=== PATIENT | female | born 1930 | race Caucasian/White ===

== ENCOUNTER 2018-06-13 23:42 | Observation (INO) | payer OTHER ==
--- NOTE | 2018-06-14 00:28 | PDOC ---
Attending Attestation - [facility] HPI: 06/14/18 00:30 The patient is a year old female, with a significant past medical history of, who presents to the emergency department with palpitations, SOB, left hand and right face numbness at 11am on 06/13 while in [place] with a family member. The family states the patient went to an urgent care who gave her metoprolol and aspirin and advised the patient to go to the ED. The family reportedly droved from [place] before going to the ED and presents now. The patient states her symptoms have now resolved and family is unsure how long the symptoms lasted. The patient denies chest pain, shortness of breath, headache and dizziness. The patient denies fever, chills, nausea, vomit, diarrhea and constipation. The patient denies dysuria, frequency, urgency and hematuria. Allergies: NKDA PCP - Dr. Meek - Physicial Exam PE: 06/14/18 00:30 Constitutional: Awake, alert, oriented. No acute distress. Head: Normocephalic. Atraumatic Eyes: PERRL. EOMI. Conjunctivae are not pale. ENT: Mucous membranes are moist and intact. Posterior pharynx without exudates or erythema. Uvula midline. Neck: Supple. Full ROM. No lymphadenopathy. Cardiovascular: Regular rate. Regular rhythm. S1, S2 regular. Distal pulses are 2+ and symmetric. Pulmonary/Chest: No evidence of respiratory distress. Clear to auscultation bilaterally No wheezing, rales or rhonchi. Abdominal: Soft and non-distended. There is no tenderness. No rebound, guarding or rigidity. No organomegaly. No palpable masses. Good bowel sounds. Back: No CVA tenderness. Musculoskeletal: No edema. No cyanosis. No clubbing. Full range of motion in all extremities. Nocalf tenderness. Radial/pedal pulses are intact and 2+ bilaterally Skin: Skin is warm and dry. No petechiae. No purpura. Neurological: Alert and oriented to person, place, and time. Cranial nerves II -XII are grossly intact. Normal speech. Strength is grossly symmetric. No sensory deficits. Psychiatric: Good eye contact. Normal interaction, affect and behavior. - Medical Decision Making 06/14/18 00:31 Documentation prepared by Stephanie Washburn, acting as medical records coder for Umu Silverman DO, <Stephanie Washburn - Last Filed: 06/14/18 00:39> - Resident Resident Name: Matilda Robles - ED Attending Attestation I have performed the following: I have examined & evaluated the patient, The case was reviewed & discussed with the resident, I agree w/resident's findings & plan, Exceptions are as noted - Medical Decision Making 06/14/18 00:26 I, Dr. Umu Silverman DO, attest that this document has been prepared under my direction and personally reviewed by me in its entirety. I further attest, that it accurately reflects all work, treatment, procedures and medical decision -making performed by me. 06/14/18 00:43 a/p: 88yo female with an episode of difficulty speaking, R facial droop, L hand numbness at 11am yesterday morning -seen at an urgent care, given asa/metoprolol -told to go to the ED for stroke eval - pt drove back from [place] for ed eval -all symptoms resolved -currently denies all compliants -earlier during stroke like symptoms/tia she had palpitations/sob -will send labs, ekg, cxr, head ct, coags -will place on tele monitoring given earlier palpitations and cva symptoms -outside the window for tpa and resolution of symptoms -will place in obs for tia eval 06/14/18 01:[address] negative 06/14/18 01:43 pt will need obs <Umu Silverman - Last Filed: 06/14/18 01:43> Heart Score/ECG Review - ECG Intrepretation Comment:: 06/14/18 01:43 sinus at 70, nl axis, nl interval, lvh, t wave inversions v3-6, abnl ekg <Umu Silverman - Last Filed: 06/14/18 01:43> tPA Exclusion checklist 3-4.5h - Time Elapsed Date last known well: 06/13/18 Time last known well: 11:00 Elaspsed time: Day(s) and 14 Hour(s) and 43 Minutes - Thrombolytic Therapy Candidate Is patient eligible for thrombolytic therapy: No - Ineligibility reason(s) Reasons No tPA given: Outside of window - delayed arrival (symptoms started 13 hours prior to arrival) <Umu Silverman - Last Filed: 06/14/18 01:43>
--- NOTE | 2018-06-14 00:38 | PDOC ---
History of Present Illness - General Chief Complaint: CVA/TIA Stated Complaint: WEAKNESS Time Seen by Provider: 06/14/18 00:12 - History of Present Illness Initial Comments: 06/14/18 00:35 88 year old woman with pmhx of HTN, HLD, DM who presents after an episode of headache, R tongue deviation and heaviness and L hand numbness at 1100 on while visiting her sister in [place]. The patient's family noted that the pt's bp was elevated to 164 and glucose 200. She was seen at an urgent care and given ASA and metoprolol. The patient is not sure how long the symptoms lasted but believes it to be approx 10-15min. The patient has complained of some shortness of breath and cough for the past couple of days but denies chest pain, abdominal pain, N/V/D/C, and fever. Has no other complaints at bedside. NIHSS: 0 PMHX: as in HPI PSHX: Meds: Allergies: Tob: Etoh: Rec drugs: PCP: [facility] Past History - Past Medical History Allergies/Adverse Reactions: Allergies Allergy/AdvReac Type Severity Reaction Status Date / Time No Known Allergies Allergy Verified 06/13/18 23:54 Home Medications: Ambulatory Orders Acetaminophen [Tylenol 8 Hour] 650 mg PO DAILY 06/14/18 Aspirin 81 mg PO DAILY 06/14/18 Cetirizine HCl [Zyrtec -] 10 mg PO DAILY 06/14/18 Metoprolol Succinate [Toprol Xl] 50 mg PO DAILY 06/14/18 Pioglitazone HCl [Actos] 30 mg PO DAILY 06/14/18 Ezetimibe [Zetia -] 10 mg PO DAILY 30 Days #30 tablet 06/15/18 Glipizide [Glipizide ER] 20 mg PO DAILY 30 Days #60 tab.er.[email or web address] 06/15/18 Metformin HCl [Glucophage] 1,000 mg PO BID 30 Days #60 tablet 06/15/18 Nifedipine ER [Procardia XL -] 30 mg PO DAILY 30 Days #30 tab.er.24 06/15/18 COPD: No Diabetes: Yes HTN: Yes Hypercholesterolemia: Yes - Suicide/Smoking/Psychosocial Hx Smoking History: Never smoked *Physical Exam - Vital Signs Last Vital Signs Temp Pulse Resp BP Pulse Ox 98.3 F 72 18 165/82 98 06/13/18 23:49 06/13/18 23:49 06/13/18 23:49 06/13/18 23:49 06/13/18 23:49 ED Treatment Course - LABORATORY CBC & Chemistry Diagram: 06/15/18 06:15 06/15/18 06:15 - RADIOLOGY Radiology Studies Ordered: Category Date Time Status HEAD CT WITHOUT CONTRAST [CT] Stat CT Scan 06/14/18 00:25 Ordered CXRPORT [CHEST X-RAY PORTABLE*] [RAD] Stat Radiology 06/14/18 00:27 Ordered Medical Decision Making - Medical Decision Making 06/14/18 00:43 88 year old woman with pmhx of HTN, HLD, DM who presents after a 10-15min episode of headache, R tongue deviation and heaviness and L hand numbness at 1100 on 06/13/18 while visiting her sister in [place]. The patient's family noted that the pt's bp was elevated to 164 and glucose 200. She was seen at an urgent care and given ASA and metoprolol. DDX: W/U: - TX: - Scores: NIHSS:0 ED Course: Patient assessed. SBP 207 06/14/18 02:53 Pt reassessed. stable. sleeping in bed 06/14/18 03:[address] Burkett 06/19/18 11:31 *DC/Admit/Observation/Transfer Diagnosis at time of Disposition: CVA (cerebral vascular accident) - Discharge Dispostion Disposition: HOME Condition at time of disposition: Stable Decision to Admit order: Yes - Prescriptions - Referrals - Patient Instructions - Post Discharge Activity
[2018-06-14 01:27] LABS: BASO % 0.6 % (0-2.0); EOS % 2.1 % (0-4.5); HEMATOCRIT 41.5 % (32.4-45.2); HEMOGLOBIN 14.2 GM/dL (10.7-15.3); LYMPH % 24.5 % (8-40); MCH 32.4 pg (25.7-33.7); MCHC 34.3 g/dl (32.0-36.0); MEAN CELL VOLUME 94.4 fl (80-96); MEAN PLT VOLUME 9.7 fl (7.5-11.1); MONO % 6.7 % (3.8-10.2); NEUT % 66.1 % (42.8-82.8); PLATELET COUNT 187 K/MM3 (134-434); RBC 4.39 M/mm3 (3.60-5.2); RDW 13.6 % (11.6-15.6)
[2018-06-14 02:25] LABS: INR 1.07 (0.83-1.09); PROTHROMBIN TIME (PATIENT) 12.1 SEC (9.7-13.0)
[2018-06-14 02:28] LABS: ACTIVATED PTT 24.9 SECONDS (25.2-36.5)
[2018-06-14 02:35] LABS: ALBUMIN 3.4 g/dl (3.4-5.0); ANION GAP 8 MMOL/L (8-16); BILIRUBIN,TOTAL 0.2 mg/dL (0.2-1.0); BLOOD UREA NITROGEN 12 mg/dL (7-18); CHLORIDE 102 mmol/L (98-107); CO2 29 mmol/L (21-32); CREATININE 1.1 mg/dL (0.55-1.02); GLUCOSE,RANDOM 286 mg/dL (74-106); SGPT/ALT 62 U/L (12-78); SODIUM 139 mmol/L (136-145); TOT PROT 7.6 g/dl (6.4-8.2)
[2018-06-14 02:36] LABS: ALK PHOS 133 U/L (45-117)
[2018-06-14 02:40] LABS: POTASSIUM 4.2 mmol/L (3.5-5.1); SGOT/AST 50 U/L (15-37)
--- NOTE | 2018-06-14 03:23 | PN ---
Teaching Attending Note Name of Resident: Doc Vna ATTENDING PHYSICIAN STATEMENT I saw and evaluated the patient. I reviewed the resident's note and discussed the case with the resident. I agree with the resident's findings and plan as documented. SUBJECTIVE: Patient is an 88 year old woman with PMH of HTN, HLD, NIDDM who presents after an episode of headache, R tongue deviation and heaviness as well as left hand numbness at 1100 on 06/13/18 while visiting her sister in [place]. The patient's family noted that her BP was elevated to 164 systolic and glucose was 200. She was seen at an urgent care and given ASA and metoprolol. The patient is not sure how long the symptoms lasted but believes it to be approx 10-15min. The patient has complained of some shortness of breath and cough for the past couple of days but denies chest pain, abdominal pain, fever or chills. She is now symptom free. OBJECTIVE: Alert Vital Signs Period Temp Pulse Resp BP Sys/Perez Pulse Ox Last 24 Hr 98.3 F 72 18 165/82 98 HEENT: No Jaundice, no facial asymmetry, eye redness or discharge, PERRLA, EOMI. Normocephalic, atraumatic. External ears are normal and hearing is grossly intact. No nasal discharge. Neck: Supple, nontender. No palpable adenopathy or thyromegaly. No JVD Chest: Good effort. Clear to auscultation and percussion. Heart: Regular. No S3, rub or murmur Abdomen: Not distended, soft, nontender and no HSM. No rebound or guarding. Normoactive bowel sounds. Ext: Peripheral pulses intact. No leg edema. Skin: Warm and dry. No petechiae, rash or ecchymosis. Neuro: Alert. Oriented x3. CN 2-12 grossly intact. Sensation grossly intact in all four extremities and DTR are symmetric. Home Medications Medication Instructions Recorded Atorvastatin Ca [Lipitor] 40 mg PO DAILY 06/14/18 Cetirizine HCl [Zyrtec -] 10 mg PO DAILY 06/14/18 Glipizide [Glipizide ER] 10 mg PO DAILY 06/14/18 Metoprolol Succinate [Toprol Xl] 50 mg PO DAILY 06/14/18 Pioglitazone HCl [Actos] 30 mg PO DAILY 06/14/18 Abnormal Lab Results 06/14/18 06/14/18 06/14/18 01:12 02:00 02:00 WBC 12.0 H PTT (Actin FS) 24.9 L Creatinine 1.1 H Random Glucose 286 H AST 50 H Alkaline Phosphatase 133 H ASSESSMENT AND PLAN: 1. TIA - Symptoms have since resolved. Head CT scan is negative and no arrhythmia on EKG -has t wave inversion in V3 to V6. Will repeat EKG and monitor her on telemetry, get ECHO, carotid doppler, fasting lipid profile, Mg, phosphate and brain MRI. Increase lipitor to 80 mg qd and give ASA. 2. DM - For now, we will hold the home diabetes drugs and implement sliding scale insulin regimen. Provide comprehensive diabetes care with patient teaching and counseling about the importance of euglycemia, eye care and foot care. 3. DVT prophylaxis - Lovenox 40 mg SQ q 24 hours. 4. Advance directives - Full code
--- NOTE | 2018-06-14 04:59 | HP ---
CHIEF COMPLAINT: Headache, tongue weakness, L hand numbness Resolved PCP: HISTORY OF PRESENT ILLNESS: 88 yo female with PMH HTN, DM, HLD, presented to the ED with complaint of an episode of Headache, Right sided tongue and lip weakness, and Left hand numbness. She says the episode occured around 11 am yesterday while she was away in [place]. The episode lasted somewhere between 5-10 minutes. She went to urgent care who gave her aspirin and a beta noel and recommended she go to the ED. She came back to [place] and is now brought to the ED by a different daughter who was not present for the episode. At this time the pt is asymptomatic with only a complaint of a mild noproductive cough which she has had for a few days. At this time pt denies fevers, chills, weakness, numbness, blurry vision, chest pain, SOB, n/v/d. ER course was notable for: (1) Head CT negative for acute bleed (2) CXR with possible mild patchy congestion on RML (3) Recent Travel: To [place] PAST MEDICAL HISTORY: HTN DM HLD PAST SURGICAL HISTORY: denies Social History: Smoking: denies Alcohol: denies Drugs: denies Family History: Allergies No Known Allergies Allergy (Verified 06/13/18 23:54) HOME MEDICATIONS: Home Medications Medication Instructions Recorded Atorvastatin Ca [Lipitor] 40 mg PO DAILY 06/14/18 Cetirizine HCl [Zyrtec -] 10 mg PO DAILY 06/14/18 Glipizide [Glipizide ER] 10 mg PO DAILY 06/14/18 Metoprolol Succinate [Toprol Xl] 50 mg PO DAILY 06/14/18 Pioglitazone HCl [Actos] 30 mg PO DAILY 06/14/18 REVIEW OF SYSTEMS CONSTITUTIONAL: Absent: fever, chills, diaphoresis, generalized weakness, malaise, loss of appetite, weight change HEENT: Absent: rhinorrhea, nasal congestion, throat pain, throat swelling, difficulty swallowing, mouth swelling, ear pain, eye pain, visual changes CARDIOVASCULAR: Absent: chest pain, syncope, palpitations, irregular heart rate, lightheadedness , peripheral edema RESPIRATORY: Absent: cough, shortness of breath, dyspnea with exertion, orthopnea, wheezing, stridor, hemoptysis GASTROINTESTINAL: Absent: abdominal pain, abdominal distension, nausea, vomiting, diarrhea, constipation, melena, hematochezia GENITOURINARY: Absent: dysuria, frequency, urgency, hesitancy, hematuria, flank pain, genital pain MUSCULOSKELETAL: Absent: myalgia, arthralgia, joint swelling, back pain, neck pain SKIN: Absent: rash, itching, pallor HEMATOLOGIC/IMMUNOLOGIC: Absent: easy bleeding, easy bruising, lymphadenopathy, frequent infections ENDOCRINE: Absent: unexplained weight gain, unexplained weight loss, heat intolerance, cold intolerance NEUROLOGIC: headache, focal weakness or paresthesias (RESOLVED) Absent: , dizziness, unsteady gait, seizure, mental status changes, bladder or bowel incontinence PSYCHIATRIC: Absent: anxiety, depression, suicidal or homicidal ideation, hallucinations. PHYSICAL EXAMINATION Vital Signs - 24 hr 06/13/18 23:49 Temperature 98.3 F Pulse Rate 72 Respiratory 18 Rate Blood Pressure 165/82 O2 Sat by Pulse 98 Oximetry (%) GENERAL: A&O, no acute distress HEAD: Normocephalic, atraumatic. EYES: PERRL, EOMI, no scleral icterus EARS, NOSE, THROAT: oropharynx clear without exudates. Moist mucous membranes. NECK: supple without lymphadenopathy LUNGS: Mild rhonchi noted left base, otherwise CTA no wheezes HEART: Regular rate and rhythm, normal S1 and S2 without murmur, rub or gallop. ABDOMEN: Soft, nontender to palpation, normoactive bowel sounds MUSCULOSKELETAL: No bony deformities or tenderness. No CVA tenderness. UPPER EXTREMITIES: 2+ pulses, warm, well-perfused. No cyanosis. No clubbing. No peripheral edema. LOWER EXTREMITIES: 2+ pulses, warm, well-perfused. No calf tenderness. No peripheral edema. NEUROLOGICAL: Cranial nerves II-XII intact. Normal speech. 5/5 strength in b/l UE, sensation in tact and equal b/l PSYCHIATRIC: Cooperative. Good eye contact. Appropriate mood and affect. SKIN: Warm, dry, normal turgor, no rashes or lesions noted Laboratory Results - last 24 hr 06/14/18 06/14/18 06/14/18 01:12 01:12 01:12 WBC 12.0 H RBC 4.39 Hgb 14.2 Hct 41.5 MCV 94.4 MCH 32.4 MCHC 34.3 RDW 13.6 Plt Count 187 MPV 9.7 Absolute Neuts (auto) 8.0 Neutrophils % 66.1 Lymphocytes % 24.5 Monocytes % 6.7 Eosinophils % 2.1 Basophils % 0.6 Nucleated RBC % 0 PT with INR INR PTT (Actin FS) Sodium Cancelled Potassium Cancelled Chloride Cancelled Carbon Dioxide Cancelled Anion Gap Cancelled BUN Cancelled Creatinine Cancelled Creat Clearance w eGFR Cancelled Random Glucose Cancelled Calcium Cancelled Total Bilirubin Cancelled AST Cancelled ALT Cancelled Alkaline Phosphatase Cancelled Creatine Kinase Troponin I Cancelled Total Protein Cancelled Albumin Cancelled 06/14/18 06/14/18 06/14/18 01:12 02:00 02:00 WBC RBC Hgb Hct MCV MCH MCHC RDW Plt Count MPV Absolute Neuts (auto) Neutrophils % Lymphocytes % Monocytes % Eosinophils % Basophils % Nucleated RBC % PT with INR Cancelled 12.10 INR Cancelled 1.07 PTT (Actin FS) Cancelled 24.9 L Sodium 139 Potassium 4.2 Chloride 102 Carbon Dioxide 29 Anion Gap 8 BUN 12 Creatinine 1.1 H Creat Clearance w eGFR 46.88 Random Glucose 286 H Calcium 9.0 Total Bilirubin 0.2 AST 50 H ALT 62 Alkaline Phosphatase 133 H Creatine Kinase Troponin I Total Protein 7.6 Albumin 3.4 06/14/18 02:00 WBC RBC Hgb Hct MCV MCH MCHC RDW Plt Count MPV Absolute Neuts (auto) Neutrophils % Lymphocytes % Monocytes % Eosinophils % Basophils % Nucleated RBC % PT with INR INR PTT (Actin FS) Sodium Potassium Chloride Carbon Dioxide Anion Gap BUN Creatinine Creat Clearance w eGFR Random Glucose Calcium Total Bilirubin AST ALT Alkaline Phosphatase Creatine Kinase 76 Troponin I < 0.02 Total Protein Albumin ASSESSMENT/PLAN: 88 yo female with PMH HTN, DM, HLD, admitted to telemetry observation after TIA. TIA -Pt symptoms resolved after 5-10 minutes, currently no neuro symptoms -Neuro consult ordered -Brain MRI -Carotid Doppler -Echo -Home dose lipitor 40 mg PO HS increased to 80 mg PO HS DM -BGM ACHS -Insulin Sliding scale for glycemic control HTN -restart home Toprol XL 50 mg PO Daily -b.p noted 165/82 in ED, can add additional agent if remains elevated in AM HLD -Increase lipitor to 80 mg PO HS DVT Prophylaxis -Heparin 5000 units SQ TID FEN -Fluids: none -Electrolytes: No electrolyte abnormalities, BMP in AM -Nutrition: diabetic diet Disposition Tele Observation Visit type - Emergency Visit Emergency Visit: Yes ED Registration Date: 06/14/18 Care time: The patient presented to the Emergency Department on the above date and was hospitalized for further evaluation of their emergent condition. - New Patient This patient is new to me today: Yes Date on this admission: 06/14/18 - Critical Care Critical Care patient: No Hospitalist Screening - Colonoscopy Questionnaire Colonoscopy Questionnaire: Colonoscopy Questionnaire - Patient: 50 - 75 years old and never had a screening colonoscopy: No History of colon or rectal polyps, or CA: No History of IBD, Crohn's disease or UC: No History of abdominal radiation therapy as a child: No - Relative: 1 with colon or rectal CA, or polyps at age 60 or younger: No Colon or rectal CA diagnosed at age 45 or younger: No Multiple relatives with colon or rectal CA: No - Outcome: Screening Result: Negative Screen
[2018-06-14] MEDS ORDERED: HEPARIN NA (PORCINE) 5,000 UNITS/ML 1ML VIAL ONE (06:32)
[2018-06-14] MEDS ORDERED: INSULIN REGULAR HUMAN 100 UNITS/ML *VIAL ONE (07:47)
[2018-06-14] MEDS: HEPARIN NA (PORCINE) 5,000 UNITS/ML 1ML VIAL SQ SCH ×3 (07:53→21:10)
[2018-06-14] MEDS: INSULIN SLIDING SCALE (NOVOLOG) 1 VIAL SQ SCH ×4 (07:54→21:15)
[2018-06-14 08:22] LABS: URINE APPEARANCE CLEAR; URINE BILIRUBIN NEGATIVE (<2.0 mg/dL); URINE COLOR STRAW; URINE GLUCOSE (UA) 3+ (NEGATIVE); URINE KETONE NEGATIVE (NEGATIVE); URINE LEUK ESTERASE NEGATIVE (NEGATIVE); URINE NITRITE NEGATIVE (NEGATIVE); URINE PROTEIN NEGATIVE (NEGATIVE); URINE UROBILINOGEN NEGATIVE mg/dL (0.2-1.0)
[2018-06-14] MEDS ORDERED: methylPREDNISolone NA SUCC 40 MG/1 ML VIAL ONE (10:43)
[2018-06-14 10:56] LABS: HEMATOCRIT 41.7 % (32.4-45.2); HEMOGLOBIN 14.4 GM/dL (10.7-15.3); MCH 32.3 pg (25.7-33.7); MCHC 34.4 g/dl (32.0-36.0); MEAN CELL VOLUME 93.6 fl (80-96); MEAN PLT VOLUME 9.5 fl (7.5-11.1); PLATELET COUNT 211 K/MM3 (134-434); RBC 4.46 M/mm3 (3.60-5.2); RDW 13.4 % (11.6-15.6)
[2018-06-14] MEDS ORDERED: INSULIN (NOVOLOG) ASPART 100 UNITS/ML 10ML VIAL ONE ×2 (11:00→17:00)
[2018-06-14 11:27] LABS: ANION GAP 11 MMOL/L (8-16); BLOOD UREA NITROGEN 11 mg/dL (7-18); CALCIUM 9.6 mg/dL (8.5-10.1); CHLORIDE 102 mmol/L (98-107); CO2 28 mmol/L (21-32); CREATININE 0.9 mg/dL (0.55-1.02); GLUCOSE,RANDOM 204 mg/dL (74-106); MAGNESIUM 2.1 mg/dL (1.8-2.4); POTASSIUM 4.2 mmol/L (3.5-5.1); SODIUM 141 mmol/L (136-145)
[2018-06-14 11:33] LABS: CHOLESTEROL 291 mg/dL (50-200); HDL CHOLESTEROL 33 mg/dL (40-60); TRIGLYCERIDES 206 mg/dL (35-160)
--- NOTE | 2018-06-14 11:44 | CON.NEURO ---
Consult - Smoking History Smoking history: Never smoked Home Medications - Allergies Allergies/Adverse Reactions: Allergies Allergy/AdvReac Type Severity Reaction Status Date / Time No Known Allergies Allergy Verified 06/13/18 23:54 - Home Medications Home Medications: Ambulatory Orders Atorvastatin Ca [Lipitor] 40 mg PO DAILY 06/14/18 Cetirizine HCl [Zyrtec -] 10 mg PO DAILY 06/14/18 Glipizide [Glipizide ER] 10 mg PO DAILY 06/14/18 Metoprolol Succinate [Toprol Xl] 50 mg PO DAILY 06/14/18 Pioglitazone HCl [Actos] 30 mg PO DAILY 06/14/18 Physical Exam-Neuro Vital Signs: Vital Signs Temperature 98 F 06/14/18 11:00 Pulse Rate 71 06/14/18 11:00 Respiratory Rate 16 06/14/18 11:00 Blood Pressure 179/82 06/14/18 11:00 O2 Sat by Pulse Oximetry (%) 96 06/14/18 11:00 Labs: CBC, BMP 06/14/18 10:35 INR, PTT INR 1.07 (0.83-1.09) 06/14/18 02:00 Assessment/Plan cc Transient left sided arm and right side of face weakness. HPI 88 year old female history of DM,HTN,HLD . She came to hospital for left arm weakness lasted for ten minute. She has developed slurred speech and left arm weakness. She was given aspirin by her sister. Initially she julito to urgent care center and than she was referred to ED.Now she is feeling much better and history was taken thrugh help of her sister initial ct scan of brain was normal PAST MEDICAL HISTORY: HTN,DM,HLD PSH,FH,ROS reviewd in chart NKDA HOME MEDICATIONS: Home Medications Medication Instructions Recorded Atorvastatin Ca [Lipitor] 40 mg PO DAILY 06/14/18 Cetirizine HCl [Zyrtec -] 10 mg PO DAILY 06/14/18 Glipizide [Glipizide ER] 10 mg PO DAILY 06/14/18 Metoprolol Succinate [Toprol Xl] 50 mg PO DAILY 06/14/18 Pioglitazone HCl [Actos] 30 mg PO DAILY 06/14/18 Neurological Examination Alert orietned x 2 CN all intact , eomi pupils reactive motor 5/5 all extremity sensation is normal swallowing is normal, nih score is 0 ct head is unremarkable mri of brain is pending assessment- TIA, Symptoms resolved PLAN - continue statin and I would add aspirin - carotid ultrasound - mri ofbrain ordered and pending - stroke education - Thanking you so much Beatriz Carpenter MD
[2018-06-14] MEDS ORDERED: ASPIRIN 81 MG CHEWABLE TABLETS ONE (12:49)
[2018-06-14] MEDS: ASPIRIN COATED 81 MG TABLET.EC PO SCH (12:57)
--- NOTE | 2018-06-14 15:05 | EKG ---
Test Reason : Blood Pressure : / mmHG Vent. Rate : 069 BPM Atrial Rate : 069 BPM P-R Int : 132 ms QRS Dur : 076 ms QT Int : 426 ms P-R-T Axes : 048 -03 -13 degrees QTc Int : 456 ms NORMAL SINUS RHYTHM POSSIBLE LEFT ATRIAL ENLARGEMENT LEFT VENTRICULAR HYPERTROPHY NONSPECIFIC T WAVE ABNORMALITY ABNORMAL ECG WHEN COMPARED WITH ECG OF 14-JUN-2018 01:08, NO SIGNIFICANT CHANGE WAS FOUND Confirmed by Yi Roy ([id number]) on 06/14/2018 3:04:52 PM Referred By: Confirmed By:Yi Roy
--- NOTE | 2018-06-14 15:35 | EKG ---
Test Reason : Blood Pressure : / mmHG Vent. Rate : 070 BPM Atrial Rate : 070 BPM P-R Int : 146 ms QRS Dur : 074 ms QT Int : 416 ms P-R-T Axes : 054 003 -01 degrees QTc Int : 449 ms POOR DATA QUALITY, INTERPRETATION MAY BE ADVERSELY AFFECTED NORMAL SINUS RHYTHM POSSIBLE LEFT ATRIAL ENLARGEMENT LEFT VENTRICULAR HYPERTROPHY ABNORMAL ECG NO PREVIOUS ECGS AVAILABLE Confirmed by Yi Roy ([id number]) on 06/14/2018 3:35:06 PM Referred By: Confirmed By:Yi Roy
--- NOTE | 2018-06-14 17:18 | ECHO ---
Name: TATE DE LA TORRE Exam:Adult Echocardiogram Study Date: 06/14/2018 09:46 AM Age: 88 yrs Reason For Study: TIA Height: 60 in Weight: 130 lb BSA: 1.6 m2 MMode/2D Measurements & Calculations IVSd: 1.0 cm Ao root diam: 2.9 cm LVIDd: 3.7 cm LA dimension: 2.5 cm LVIDs: 2.3 cm LVPWd: 0.97 cm EDV(Teich): 57.0 ml ESV(Teich): 17.5 ml Doppler Measurements & Calculations MV E max cleve: 74.7 cm/sec AI P1/2t: 557.1 msec MV A max cleve: 117.4 cm/sec MV E/A: 0.64 MV dec time: 0.40 sec AI max cleve: 463.9 cm/sec MR max cleve: 525.8 cm/sec AI max P.1 mmHg MR max P.6 mmHg AI dec slope: 243.9 cm/sec2 TR max cleve: 276.6 cm/sec Med Peak E' Cleve: 4.0 cm/sec TR max P.6 mmHg Med E/e': 18.6 Lat Peak E' Cleve: 6.9 cm/sec Lat E/e': 10.9 PI Vmax: 122.2 cm/sec Procedure A complete two-dimensional transthoracic echocardiogram was performed (2D, M-mode, Doppler and color flow Doppler). The study was technically difficult with many images being suboptimal in quality. Left Ventricle The left ventricle is grossly normal size. The left ventricle is not well visualized. Grossly normal LV function. Grade I diastolic dysfunction, (abnormal relaxation pattern). Regional wall motion abnormal ities cannot be excluded due to limited visualization. Right Ventricle The right ventricle is not well visualized. Atria The left atrium is not well visualized. Right atrium not well visualized. Mitral Valve The mitral valve is not well visualized. The mitral valve is grossly normal. There is trace mitral regurgitation. Tricuspid Valve The tricuspid valve is not well visualized. There is trace tricuspid regurgitation. Right ventricular systolic pressure is elevated at 35-40 mmhg. Aortic Valve The aortic valve is not well visualized. Mild aortic regurgitation. Pulmonic Valve The pulmonic valve is not well visualized. Trace pulmonic valvular regurgitation. Great Vessels The aortic root is not well visualized but is probably normal size. Pericardium/Pleura There is no pericardial effusion. Interpretation Summary Grossly normal LV function. The left ventricle is not well visualized. The right ventricle is not well visualized. The mitral valve is not well visualized. The tricuspid valve is not well visualized. The aortic valve is not well visualized. Mild aortic regurgitation. The study was technically difficult with many images being suboptimal in quality. MD Yi Roy 06/14/2018 05:18 PM
--- NOTE | 2018-06-14 17:23 | PN ---
Teaching Attending Note Name of Resident: Mohamud Mccray ATTENDING PHYSICIAN STATEMENT I saw and evaluated the patient. I reviewed the resident's note and discussed the case with the resident. I agree with the resident's findings and plan as documented. SUBJECTIVE:asymptomatic. reports that she felt her R hand was numb which lasted 30 minutes and then resolved. had a similar episode a month ago. as per daughter at bedside also noted she had a facial droop which she reports has resolved. is not taking one of her antihypertensives (norvasc/enalapril combo) due to tachycardic symptoms so she stopped it herself. denies CP, SOB, fever, chills, N/v/C/D OBJECTIVE: Last Vital Signs Temp Pulse Resp BP Pulse Ox 97.8 F 68 18 173/81 97 06/14/18 17:00 06/14/18 17:00 06/14/18 17:00 06/14/18 17:00 06/14/18 17:00 General NAD CV S1 S2 RRR no murmrur/rub/gallop Lungs CTA B/L no wheezing/rales/rhonchi Neuro CN grossly intact sensation and strength equal in all 4 extremities ASSESSMENT AND PLAN: 88yo F wtih PMH HTN, dyslipidemia, DM presented iwth sudden onset of R hand numbness which has resolved 1. R hand numbness- likely TIA which has now resolved. initial Head CT negative. MRI brain, carotid doppler, echo pending. pt would benefit from starting baby asa (sounds like patient is taking this at home occasionally). cont statin. cardiac monitoring and neuro consulted 2. HTN- uncontrolled. will start nifedipine. will avoid acei as can cause hypotension with reflex tachycardia. cont metoprolol 3. leukocytosis- likely reactive. no signs of infection. would hold abx 4. IRASEMA- likely dehydration. now resolved 5. DM- hold oral agents. iss, bgm 6. dysliidemia- lipid panel showing LDL 245. will repeat. would likely benefit from high intensity statin given risk factors however concern given age. will repeat LDL 7. DVT ppx- EAM 8. spoke with daughter present at bedside. plan discussed. all questions answered and verbalized understanding.
[2018-06-14] MEDS ORDERED: NIFEdipine 10 MG CAPSULE (FP) ONE (17:40)
[2018-06-14] MEDS: NIFEdipine E.R. 30 MG TABLET (FP) PO SCH (17:47)
--- NOTE | 2018-06-14 18:31 | PN ---
Physical Exam: SUBJECTIVE: Patient seen and examined at bedside. no acute events. comfortable. no complaints. denies any weakness, slurring speech, cp, sob OBJECTIVE: Vital Signs Period Temp Pulse Resp BP Sys/Perez Pulse Ox Last 24 Hr 97.8 F-98.3 F 68-79 16-20 165-207/81-90 96-100 GENERAL: A&O3, no acute distress HEAD: Normocephalic, atraumatic. EYES: PERRL, EOMI, no scleral icterus EARS, NOSE, THROAT: oropharynx clear without exudates. Moist mucous membranes. NECK: supple without lymphadenopathy LUNGS: CTAB HEART: Regular rate and rhythm, normal S1 and S2 without murmur, rub or gallop. ABDOMEN: Soft, nontender to palpation, normoactive bowel sounds MUSCULOSKELETAL: No bony deformities or tenderness. UPPER EXTREMITIES: 2+ pulses, warm, well-perfused. No cyanosis. No clubbing. No peripheral edema. LOWER EXTREMITIES: 2+ pulses, warm, well-perfused. No calf tenderness. No peripheral edema. NEUROLOGICAL: Cranial nerves II-XII intact. Normal speech. 5/5 strength in b/l UE, sensation in tact and equal b/l. nl FNT. normal gait PSYCHIATRIC: Cooperative. Good eye contact. Appropriate mood and affect. SKIN: Warm, dry, normal turgor, no rashes or lesions noted Laboratory Results - last 24 hr 06/14/18 06/14/18 06/14/18 01:12 01:12 01:12 WBC 12.0 H RBC 4.39 Hgb 14.2 Hct 41.5 MCV 94.4 MCH 32.4 MCHC 34.3 RDW 13.6 Plt Count 187 MPV 9.7 Absolute Neuts (auto) 8.0 Neutrophils % 66.1 Lymphocytes % 24.5 Monocytes % 6.7 Eosinophils % 2.1 Basophils % 0.6 Nucleated RBC % 0 PT with INR INR PTT (Actin FS) Sodium Cancelled Potassium Cancelled Chloride Cancelled Carbon Dioxide Cancelled Anion Gap Cancelled BUN Cancelled Creatinine Cancelled Creat Clearance w eGFR Cancelled POC Glucometer Random Glucose Cancelled Calcium Cancelled Phosphorus Magnesium Total Bilirubin Cancelled AST Cancelled ALT Cancelled Alkaline Phosphatase Cancelled Creatine Kinase Troponin I Cancelled Total Protein Cancelled Albumin Cancelled Triglycerides Cholesterol Total LDL Cholesterol HDL Cholesterol Urine Color Urine Appearance Urine pH Ur Specific [place] Urine Protein Urine Glucose (UA) Urine Ketones Urine Blood Urine Nitrite Urine Bilirubin Urine Urobilinogen Ur Leukocyte Esterase 06/14/18 06/14/18 06/14/18 01:12 02:00 02:00 WBC RBC Hgb Hct MCV MCH MCHC RDW Plt Count MPV Absolute Neuts (auto) Neutrophils % Lymphocytes % Monocytes % Eosinophils % Basophils % Nucleated RBC % PT with INR Cancelled 12.10 INR Cancelled 1.07 PTT (Actin FS) Cancelled 24.9 L Sodium 139 Potassium 4.2 Chloride 102 Carbon Dioxide 29 Anion Gap 8 BUN 12 Creatinine 1.1 H Creat Clearance w eGFR 46.88 POC Glucometer Random Glucose 286 H Calcium 9.0 Phosphorus Magnesium Total Bilirubin 0.2 AST 50 H ALT 62 Alkaline Phosphatase 133 H Creatine Kinase Troponin I Total Protein 7.6 Albumin 3.4 Triglycerides Cholesterol Total LDL Cholesterol HDL Cholesterol Urine Color Urine Appearance Urine pH Ur Specific [place] Urine Protein Urine Glucose (UA) Urine Ketones Urine Blood Urine Nitrite Urine Bilirubin Urine Urobilinogen Ur Leukocyte Esterase 06/14/18 06/14/18 06/14/18 02:00 07:38 07:50 WBC RBC Hgb Hct MCV MCH MCHC RDW Plt Count MPV Absolute Neuts (auto) Neutrophils % Lymphocytes % Monocytes % Eosinophils % Basophils % Nucleated RBC % PT with INR INR PTT (Actin FS) Sodium Potassium Chloride Carbon Dioxide Anion Gap BUN Creatinine Creat Clearance w eGFR POC Glucometer 206.47683 Random Glucose Calcium Phosphorus Magnesium Total Bilirubin AST ALT Alkaline Phosphatase Creatine Kinase 76 Troponin I < 0.02 Total Protein Albumin Triglycerides Cholesterol Total LDL Cholesterol HDL Cholesterol Urine Color Straw Urine Appearance Clear Urine pH 6.0 Ur Specific [place] 1.007 Urine Protein Negative Urine Glucose (UA) 3+ H Urine Ketones Negative Urine Blood Negative Urine Nitrite Negative Urine Bilirubin Negative Urine Urobilinogen Negative Ur Leukocyte Esterase Negative 06/14/18 06/14/18 06/14/18 10:35 10:35 10:35 WBC 11.0 H RBC 4.46 Hgb 14.4 Hct 41.7 MCV 93.6 MCH 32.3 MCHC 34.4 RDW 13.4 Plt Count 211 MPV 9.5 Absolute Neuts (auto) Neutrophils % Lymphocytes % Monocytes % Eosinophils % Basophils % Nucleated RBC % PT with INR INR PTT (Actin FS) Sodium 141 Potassium 4.2 Chloride 102 Carbon Dioxide 28 Anion Gap 11 BUN 11 Creatinine 0.9 Creat Clearance w eGFR 59.09 POC Glucometer Random Glucose 204 H Calcium 9.6 Phosphorus 3.0 Magnesium 2.1 Total Bilirubin AST ALT Alkaline Phosphatase Creatine Kinase Troponin I Total Protein Albumin Triglycerides 206 H Cholesterol 291 H Total LDL Cholesterol 245 H HDL Cholesterol 33 L Urine Color Urine Appearance Urine pH Ur Specific [place] Urine Protein Urine Glucose (UA) Urine Ketones Urine Blood Urine Nitrite Urine Bilirubin Urine Urobilinogen Ur Leukocyte Esterase 06/14/18 06/14/18 10:55 16:48 WBC RBC Hgb Hct MCV MCH MCHC RDW Plt Count MPV Absolute Neuts (auto) Neutrophils % Lymphocytes % Monocytes % Eosinophils % Basophils % Nucleated RBC % PT with INR INR PTT (Actin FS) Sodium Potassium Chloride Carbon Dioxide Anion Gap BUN Creatinine Creat Clearance w eGFR POC Glucometer 200.69008 163.52804 Random Glucose Calcium Phosphorus Magnesium Total Bilirubin AST ALT Alkaline Phosphatase Creatine Kinase Troponin I Total Protein Albumin Triglycerides Cholesterol Total LDL Cholesterol HDL Cholesterol Urine Color Urine Appearance Urine pH Ur Specific [place] Urine Protein Urine Glucose (UA) Urine Ketones Urine Blood Urine Nitrite Urine Bilirubin Urine Urobilinogen Ur Leukocyte Esterase Active Medications Generic Name Dose Route Start Last Admin Trade Name Freq PRN Reason Stop Dose Admin Aspirin 81 mg 06/14/18 11:45 06/14/18 12:57 Ecotrin - PO 81 mg DAILY VANNA Administration Atorvastatin Calcium 80 mg 06/14/18 22:00 Lipitor - PO HS VANNA Heparin Sodium (Porcine) 5,000 unit 06/14/18 06:00 06/14/18 14:47 Heparin - SQ 5,000 unit TID VANNA Administration Insulin Aspart 1 vial 06/14/18 07:00 06/14/18 17:04 Novolog Vial Sliding Scale - SQ 1 units ACHS VANNA Administration Protocol Metoprolol Succinate 50 mg 06/14/18 10:00 06/14/18 11:02 Toprol Xl - PO 50 mg DAILY VANNA Administration Nifedipine 30 mg 06/14/18 16:45 06/14/18 17:47 Procardia Xl - PO 30 mg DAILY VANNA Administration ASSESSMENT/PLAN: 88 yo female with PMH HTN, DM, HLD, admitted to telemetry observation after TIA w/ sudden onset of R hand numbness that has resolved TIA -Pt symptoms resolved after 5-10 minutes, currently no neuro symptoms -Neuro consult ordered -Brain MRI -Carotid Doppler - 50-70% internal carotid artery stenosis, rpt outpt in 6 mo -Echo -Head CT negative -Home dose lipitor 40 mg PO HS increased to 80 mg PO HS -start ASA #leukocytosis- likely reactive. no signs of infection. -would hold abx for now DM -BGM ACHS -Insulin Sliding scale for glycemic control -hold oral agents HTN - uncontrolled 170s -c/w home Toprol XL 50 mg PO Daily -b.p noted 165/82 in ED, can add additional agent if remains elevated in AM -will start nifedipine -avoid acei as can cause hypotension with reflex tachycardia HLD -Increase lipitor to 80 mg PO HS -lipid panel showing LDL 245. will repeat LDL DVT Prophylaxis -Heparin 5000 units SQ TID FEN -Fluids: none -Electrolytes: No electrolyte abnormalities, BMP in AM -Nutrition: diabetic diet Disposition Tele Observation -kiana pulliam Visit type - Emergency Visit Emergency Visit: Yes ED Registration Date: 06/14/18 Care time: The patient presented to the Emergency Department on the above date and was hospitalized for further evaluation of their emergent condition. - New Patient This patient is new to me today: Yes Date on this admission: 06/14/18 - Critical Care Critical Care patient: No
[2018-06-14 21:27] VITALS: BMI 25.5
[2018-06-14] MEDS ORDERED: ATORVASTATIN CA 80 MG TABLET (FP) PO SCH (22:00)
[2018-06-15] MEDS: HEPARIN NA (PORCINE) 5,000 UNITS/ML 1ML VIAL SQ SCH ×2 (05:36→15:02)
[2018-06-15] MEDS: INSULIN SLIDING SCALE (NOVOLOG) 1 VIAL SQ SCH ×2 (06:18→12:08)
[2018-06-15] MEDS: NIFEdipine E.R. 30 MG TABLET (FP) PO SCH ×2 (06:18→10:16)
[2018-06-15 07:28] LABS: BASO % 0.8 % (0-2.0); EOS % 2.7 % (0-4.5); HEMATOCRIT 41.4 % (32.4-45.2); HEMOGLOBIN 14.2 GM/dL (10.7-15.3); LYMPH % 31.7 % (8-40); MCH 31.8 pg (25.7-33.7); MCHC 34.3 g/dl (32.0-36.0); MEAN CELL VOLUME 92.6 fl (80-96); MEAN PLT VOLUME 9.1 fl (7.5-11.1); MONO % 6.3 % (3.8-10.2); NEUT % 58.5 % (42.8-82.8); PLATELET COUNT 227 K/MM3 (134-434); RBC 4.47 M/mm3 (3.60-5.2); RDW 13.7 % (11.6-15.6); WHITE BLOOD COUNT 13.1 K/mm3 (4.0-10.0)
[2018-06-15 07:43] LABS: CHLORIDE 101 mmol/L (98-107); SODIUM 138 mmol/L (136-145)
[2018-06-15 07:51] LABS: ALBUMIN 3.7 g/dl (3.4-5.0); ALK PHOS 129 U/L (45-117); ANION GAP 9 MMOL/L (8-16); BILIRUBIN,TOTAL 0.5 mg/dL (0.2-1.0); BLOOD UREA NITROGEN 17 mg/dL (7-18); CALCIUM 8.9 mg/dL (8.5-10.1); CHOLESTEROL 274 mg/dL (50-200); CO2 28 mmol/L (21-32); CREATININE 1.1 mg/dL (0.55-1.02); GLUCOSE,RANDOM 205 mg/dL (74-106); HDL CHOLESTEROL 32 mg/dL (40-60); SGOT/AST 64 U/L (15-37); SGPT/ALT 69 U/L (12-78); TOT PROT 7.9 g/dl (6.4-8.2); TRIGLYCERIDES 235 mg/dL (35-160)
[2018-06-15] MEDS ORDERED: PT OWN MED DRAWER 7, Y5N ONE (09:26)
--- NOTE | 2018-06-15 09:56 | PN ---
Progress Note (short form) - Note Progress Note: Transient left sided arm and right side of face weakness. she is 88 year old female history of DM,HTN,HLD . She came to hospital for left arm weakness lasted for ten minute. She has developed slurred speech and left arm weakness. She was given aspirin by her sister. Initially she julito to urgent care center and than she was referred to ED.Now she is feeling much better and history was taken thrugh help of her sister initial ct scan of brain was normal Neurological Examination Alert orietned x 2 CN all intact , eomi pupils reactive motor 5/5 all extremity sensation is normal swallowing is normal, nih score is 0 ct head is unremarkable mri of brain no acute findings carotid ultrasound moderate right stenosis assessment- TIA, Symptoms resolved, mri fo brain is noraml and right ica moderate stenosis PLAN - continue statin and I would add aspirin - a vascular surgery consult can be obtained , or may be done as outpatient - stroke education and continue high dose of statin (80 mg of lipitor) Thanking you so much Beatriz Carpenter MD
[2018-06-15] MEDS ORDERED: EZETIMIBE 10 MG TABLET (FP) PO SCH (10:00)
[2018-06-15] MEDS: ASPIRIN COATED 81 MG TABLET.EC PO SCH (10:15)
--- NOTE | 2018-06-15 11:19 | PN ---
Teaching Attending Note Name of Resident: Mohamud Mccray ATTENDING PHYSICIAN STATEMENT I saw and evaluated the patient. I reviewed the resident's note and discussed the case with the resident. I agree with the resident's findings and plan as documented. SUBJECTIVE:asymptomatic. denies CP, SOB, fever, chills, numbness/tingling OBJECTIVE: Last Vital Signs Temp Pulse Resp BP Pulse Ox 98 F 80 20 154/84 97 06/15/18 10:00 06/15/18 10:00 06/15/18 10:00 06/15/18 10:00 06/15/18 09:00 General NAD CV S1 S2 RRR no murmrur/rub/gallop Lungs CTA B/L no wheezing/rales/rhonchi Neuro CN grossly intact sensation and strength equal in all 4 extremities ASSESSMENT AND PLAN: 88yo F wtih PMH HTN, dyslipidemia, DM presented iwth sudden onset of R hand numbness which has resolved 1. R hand numbness- likely TIA which has now resolved. head CT and MRI negative. carotid doppler showing 50-70% R side stenosis. should have the ultrasound repeated. asa on discharge. 2. HTN- improved. states at home her SBP is usually 170's. will cont wiht nifepidine and metoprolol and can be titrated as outpatient. 3. leukocytosis- likely reactive. no signs of infection. would hold abx 4. IRASEMA- likely dehydration. now resolved 5. DM- A1c 9.9 lengthy conversation iwth family about the benefits of insulin therapy and that oral agents will likely not be effective. given that she lives hald the year in the [facility] and half in the and fear that she will not be able to obtain and administer insulin while [place] the states family is apprehensive to starting at this time. will add metformin 1000mg BID, increase glyburide to 20mg daily. advised to check sugars and bring them to PMD appt next week and will need A1c in 3 months. dietary consult. (advised to switch ensures to glucerna) 6. dysliidemia- very elevated LDL again on repeat. susipcion for familial disorder. will switch to high intensity statin crestor 40mg and add zetia. dietary changes. advised family they should be tested as well. 7. DVT ppx- EAM 8. spoke with daughters present at bedside. plan discussed in detail with the mutliple medication changes and follow ups. all questions answered and verbalized understanding. d/c home
[2018-06-15 14:12] VITALS: BP 155/77; PULSE 83; TEMP 98
--- NOTE | 2018-06-15 15:08 | DS ---
Physical Exam: SUBJECTIVE: Patient seen and examined at bedside. no acute events. comfortable. no complaints. denies any weakness, slurring speech, cp, sob OBJECTIVE: Vital Signs Period Temp Pulse Resp BP Sys/Perez Pulse Ox Last 24 Hr 97.8 F-98.8 F 68-83 16-20 150-191/77-90 97-98 PHYSICAL EXAM GENERAL: A&O3, no acute distress HEAD: Normocephalic, atraumatic. EYES: PERRL, EOMI, no scleral icterus EARS, NOSE, THROAT: oropharynx clear without exudates. Moist mucous membranes. NECK: supple without lymphadenopathy LUNGS: CTAB HEART: Regular rate and rhythm, normal S1 and S2 without murmur, rub or gallop. ABDOMEN: Soft, nontender to palpation, normoactive bowel sounds MUSCULOSKELETAL: No bony deformities or tenderness. UPPER EXTREMITIES: 2+ pulses, warm, well-perfused. No cyanosis. No clubbing. No peripheral edema. LOWER EXTREMITIES: 2+ pulses, warm, well-perfused. No calf tenderness. No peripheral edema. NEUROLOGICAL: Cranial nerves II-XII intact. Normal speech. 5/5 strength in b/l UE, sensation in tact and equal b/l. nl FNT. normal gait PSYCHIATRIC: Cooperative. Good eye contact. Appropriate mood and affect. SKIN: Warm, dry, normal turgor, no rashes or lesions noted LABS Laboratory Results - last 24 hr 06/14/18 06/14/18 06/15/18 16:48 21:09 05:21 WBC RBC Hgb Hct MCV MCH MCHC RDW Plt Count MPV Absolute Neuts (auto) Neutrophils % Lymphocytes % Monocytes % Eosinophils % Basophils % Nucleated RBC % Sodium Potassium Chloride Carbon Dioxide Anion Gap BUN Creatinine Creat Clearance w eGFR POC Glucometer 163.26424 214 185 Random Glucose Hemoglobin A1c % Calcium Total Bilirubin AST ALT Alkaline Phosphatase Total Protein Albumin Triglycerides Cholesterol Total LDL Cholesterol HDL Cholesterol 06/15/18 06/15/18 06/15/18 06:15 06:15 07:00 WBC 13.1 H RBC 4.47 Hgb 14.2 Hct 41.4 MCV 92.6 MCH 31.8 MCHC 34.3 RDW 13.7 Plt Count 227 MPV 9.1 Absolute Neuts (auto) 7.7 Neutrophils % 58.5 Lymphocytes % 31.7 D Monocytes % 6.3 Eosinophils % 2.7 Basophils % 0.8 Nucleated RBC % 0 Sodium 138 Potassium 4.0 Chloride 101 Carbon Dioxide 28 Anion Gap 9 BUN 17 Creatinine 1.1 H Creat Clearance w eGFR 46.88 POC Glucometer Random Glucose 205 H Hemoglobin A1c % 9.9 H Calcium 8.9 Total Bilirubin 0.5 AST 64 H ALT 69 Alkaline Phosphatase 129 H Total Protein 7.9 Albumin 3.7 Triglycerides 235 H Cholesterol 274 H Total LDL Cholesterol 230 H HDL Cholesterol 32 L 06/15/18 11:52 WBC RBC Hgb Hct MCV MCH MCHC RDW Plt Count MPV Absolute Neuts (auto) Neutrophils % Lymphocytes % Monocytes % Eosinophils % Basophils % Nucleated RBC % Sodium Potassium Chloride Carbon Dioxide Anion Gap BUN Creatinine Creat Clearance w eGFR POC Glucometer 268 Random Glucose Hemoglobin A1c % Calcium Total Bilirubin AST ALT Alkaline Phosphatase Total Protein Albumin Triglycerides Cholesterol Total LDL Cholesterol HDL Cholesterol HOSPITAL COURSE: Date of Admission:06/14/18 Date of Discharge: 06/15/18 88 yo female with PMH HTN, DM, HLD, admitted to telemetry observation after TIA w/ sudden onset of R hand numbness that has resolved after 5-10 min. Admitted for TIA and stroke w/u. VSS afebrile w/o neuro sxs or deficits on exam. No electrolyte abnormalities. Neuro consulted. Head CT negative, Carotid Doppler - 50-70% internal carotid artery stenosis, (pt can rpt outpt in 6 mo), Brain MRI showed no infarcts, Echo - poor study but grossly normal. ASA on discharge. Pt was found to have uncontrolled HTN, DM, HLD: HTN- BPs were in 170s/80s, we c/w home Toprol XL and added nifedipine to her regimen. We avoided acei as can cause hypotension with reflex tachycardia DM - A1c was 9.9, we increased glyburide to 20mg qd and added metformin 1000mg BID. We educated pt about diet, checking sugars and rpt A1c in 3 mo. We did not dc pt w/ insulin as she he lives half the year in the [place] and half in the and fear that she will not be able to obtain and administer insulin while not [place] the states family is apprehensive to starting at this time HLD - LDL 245 while taking home lipitor 40 mg. Suspicion for familial disorder, we switched to high intensity statin crestor 40mg and added zetia. Encouraged dietary changes and advised the family that they should be tested as well. Pt is stable and ready for discharge w/ appropriate follow up. Minutes to complete discharge: 35 Discharge Summary Reason For Visit: CEREBROVASCULAR ACCIDENT (CVA) Current Active Problems CVA (cerebral vascular accident) (Acute) Diabetes type 2, uncontrolled (Acute) HLD (hyperlipidemia) (Acute) Hypertension (Acute) Condition: Stable - Instructions Diet, Activity, Other Instructions: You were admitted for stroke like symptoms that resolved spontaneously. We treated you with blood thinners, supportive care and took images of your brain and neck all of which were normal. We noticed some mild narrowing of one of the blood vessels in the neck. Please have your varitype operator repeat an ultrasound of your neck in 6 months time. Your blood pressure, diabetes, and cholesterol are not controlled. For you blood pressure Please continue taking home metoprolol and we will start you on a new medication called nifedipine. Please monitor and record your blood pressure at home For your diabetes, we will increase your glyburide to 20mg and we will start you on a new medication called metformin. Please follow up with your primary care physician to recheck your hemoglobin A1c in 3 months. Please monitor and record your sugars at home and watch for symptoms of hypoglycemia/low blood sugar. If you experience any lightheadedness, confusion , weakness, sweating, nausea, vomiting, check your sugar to make sure its not too low. Please switch your ensures to glucerna for better sugar control For your high cholesterol, please stop taking lipitor. we will start you on 2 new medications called crestor and zetia. Please take these medications prior to bedtime Please follow up with your primary care physician to recheck your cholesterol levels in 3 months. You may want to consider getting genetic testing to see if you and your family members are predisposed to having high cholesterol. Pleas follow up with your primary care physician in 1 week Pleas follow up with your neurologist in 1 week Pleas follow up with your varitype operator in 1 week If you experience any facial droop, dizziness, headache, focal weakness , decreased sensation, or speech slurring please come to the ER or call 911 immediately. f you experience any lightheadedness, confusion , weakness, sweating, nausea, vomiting, or pass out, call 911 or come to the ER. Referrals: Will Carpenter MD [Staff Physician] - 1 Week Galindo Meek PA [Primary Care Provider] - 1 Week Disposition: HOME - Home Medications Comprehensive Discharge Medication List: Ambulatory Orders Acetaminophen [Tylenol 8 Hour] 650 mg PO DAILY 06/14/18 Aspirin 81 mg PO DAILY 06/14/18 Cetirizine HCl [Zyrtec -] 10 mg PO DAILY 06/14/18 Metoprolol Succinate [Toprol Xl] 50 mg PO DAILY 06/14/18 Pioglitazone HCl [Actos] 30 mg PO DAILY 06/14/18 Ezetimibe [Zetia -] 10 mg PO DAILY 30 Days #30 tablet 06/15/18 Glipizide [Glipizide ER] 20 mg PO DAILY 30 Days #60 [id number] 06/15/18 Metformin HCl [Glucophage] 1,000 mg PO BID 30 Days #60 tablet 06/15/18 Nifedipine ER [Procardia XL -] 30 mg PO DAILY 30 Days #30 tab.[id number] 06/15/18 This patient is new to me today: Yes Date on this admission: 06/15/18 Emergency Visit: Yes ED Registration Date: 06/14/18 Care time: The patient presented to the Emergency Department on the above date and was hospitalized for further evaluation of their emergent condition. Critical Care patient: No - Discharge Referral Referred to [facility] No
[2018-06-15] MEDS ORDERED: ROSUVASTATIN CA 20 MG TABLET (FP) PO SCH (22:00)
== END 2018-06-15 15:08 | disposition home or self-care (01) ==
LOC: JER 23:42 → JERBED 06-14 03:35 → J4S 06-14 20:33
PROVIDERS: ADMIT Internal Medicine; ATTEND Internal Medicine
PROC: 3E013VG Introduction of Insulin into Subcutaneous Tissue, Percutaneous Approach (ICD-10-PCS; principal; 2018-06-14)
DX: G45.9 Transient cerebral ischemic attack, unspecified (principal); I10 Essential (primary) hypertension; E78.5 Hyperlipidemia, unspecified; E11.9 Type 2 diabetes mellitus without complications; D72.829 Elevated white blood cell count, unspecified; N17.9 Acute kidney failure, unspecified; Z79.84 Long term (current) use of oral hypoglycemic drugs
CPT/HCPCS: 36415; 70450-TC; 70551-TC; 71045-TC-FY; 80048; 80053; 80061; 81003; 82550; 82962; 83036; 83721; 83735; 84100; 84484; 85025; 85027; 85610; 85730; 93005; 93010; 93306-TC; 93880-TC; 96372; 99285-25; G0378; J1644

== ENCOUNTER 2019-01-28 16:15 | Emergency (ER) | payer OTHER ==
[2019-01-28 17:14] VITALS: BMI 24.5
[2019-01-28] MEDS ORDERED: ACETAMINOPHEN 325 MG TABLET (FP) PO ONE (17:15)
--- NOTE | 2019-01-28 17:33 | PDOC ---
History of Present Illness - General Chief Complaint: SIRS, Suspected/Possible Stated Complaint: COLD SYMPTOM Time Seen by Provider: 01/28/19 17:31 History Source: Patient Exam Limitations: Language Barrier - History of Present Illness Initial Comments: 88 yo F w a pmh of HTN, HLD, NIDDM who presents to the ER after she has had fevers for a week associated with a cough and greenish/white sputum production. The patient states she has also had a sore throat in this time and occasional myalgias. She denies having any chest pain or headaches at any point during her illness. She endorses the chills and constant sweats. Denies dysuria, frequency , or urgency. She thought the fevers would go away on their own but because they haven't subsided the patient decided to come to the ER to be evaluated. She has not taken any medications for the fever including tylenol or motrin. PCP: Dustin Enrique PSH: None reported Social Hx: Denies smoking, drinking, or other substance usage. Allergies: NKA, NKDA Past History - Past Medical History Allergies/Adverse Reactions: Allergies Allergy/AdvReac Type Severity Reaction Status Date / Time No Known Allergies Allergy Verified 01/28/19 17:02 Home Medications: Ambulatory Orders Acetaminophen [Tylenol 8 Hour] 650 mg PO DAILY 06/14/18 Aspirin 81 mg PO DAILY 06/14/18 Cetirizine HCl [Zyrtec -] 10 mg PO DAILY 06/14/18 Metoprolol Succinate [Toprol Xl] 50 mg PO DAILY 06/14/18 Pioglitazone HCl [Actos] 30 mg PO DAILY 06/14/18 Ezetimibe [Zetia -] 10 mg PO DAILY 30 Days #30 tablet 06/15/18 Glipizide [Glipizide ER] 20 mg PO DAILY 30 Days #60 tab.er.24 06/15/18 Metformin HCl [Glucophage] 1,000 mg PO BID 30 Days #60 tablet 06/15/18 Nifedipine ER [Procardia XL -] 30 mg PO DAILY 30 Days #30 tab.er.24 06/15/18 COPD: No Diabetes: Yes HTN: Yes Hypercholesterolemia: Yes - Suicide/Smoking/Psychosocial Hx Smoking History: Never smoked Have you smoked in the past 12 months: No Number of Cigarettes Smoked Daily: 3 Hx Alcohol Use: No Drug/Substance Use Hx: No Substance Use Type: None Hx Substance Use Treatment: No Review of Systems - Review of Systems Able to Perform ROS?: Yes Comments:: CONSTITUTIONAL: Present: fever, chills, fatigue EYES: Absent: visual changes ENT: Present: Sore throat Absent: ear pain CARDIOVASCULAR: Absent: chest pain, no palpitations RESPIRATORY: Present: Cough Absent: no SOB GI: Absent: abdominal pain, no nausea, no vomiting, no constipation, no diarrhea GENITOURINARY: Absent: dysuria, no frequency, no hematuria MUSKULOSKELETAL: Absent: back pain, no arthralgia, no myalgia SKIN: Absent: rash NEURO: Absent: headache *Physical Exam - Vital Signs Last Vital Signs Temp Pulse Resp BP Pulse Ox 101.1 F H 102 H 20 114/52 L 96 01/28/19 17:06 01/28/19 17:06 01/28/19 17:06 01/28/19 17:06 01/28/19 17:06 - Physical Exam Comments: GENERAL: Well-appearing, well-nourished. No apparent distress. HEENT: Normocephalic, atraumatic. PERRL, EOM intact. Oropharynx clear. CARDIOVASCULAR: Normal S1, S2. Tachycardic rate and regular rhythm. PULMONARY: No evidence of respiratory distress. Lungs clear to auscultation bilaterally. No wheezing, rales or rhonchi. ABDOMEN: Soft, non-distended, non-tender. EXTREMITIES: Normal ROM in all four extremities. No gross deformities. SKIN: Warm, dry. No rash NEUROLOGICAL: No focal neurological deficits. ED Treatment Course - LABORATORY CBC & Chemistry Diagram: 01/28/19 18:13 01/28/19 18:13 Medical Decision Making - Medical Decision Making 88 yo F w a pmh of HTN, HLD, NIDDM who presents to the ER after she has had fevers for a week associated with a cough and greenish/white sputum production. The patient states she has also had a sore throat in this time and occasional myalgias. She denies having any chest pain or headaches at any point during her illness. She endorses the chills and constant sweats. Denies dysuria, frequency , or urgency. She thought the fevers would go away on their own but because they haven't subsided the patient decided to come to the ER to be evaluated. She has not taken any medications for the fever including tylenol or motrin. VS: tachycardic, febrile, - Patient meets SIRS criteria and meets Sepsis definition but is overall very well appearing. DDx IBNLT: URI, Strep, influenza, PNA, UTI, gastroenteritis, electrolyte/ metabolic disturbance, ACS/AK, pneumothorax. Plan: Ed adult sepsis workup labs, cxr, ekg, IV hydration, flu and strep swab, re-assess. Strep A positive - Will treat with Penicillin G 1.2 mill units in [facility]. WBC elevated to 24 with a left shift. Lactic acid elevated at 3.4 Trop elevated at 0.3 EKG shows [address] depression in v4-v6 which were not present in May on a prior EKG. Repeat lactic acid went down to 0.8 Repeat Trop went down to 0.21 Patient says they can see Dr. Enrique tomorrow and really wants to leave the hospital. *DC/Admit/Observation/Transfer Diagnosis at time of Disposition: Strep throat, EKG abnormalities, Elevated troponin - Discharge Dispostion Disposition: HOME Condition at time of disposition: Improved Decision to Admit order: No - Referrals Referrals: Dustin Enrique MD [Primary Care Provider] - - Patient Instructions Printed Discharge Instructions: Cardiac Troponin, DI for Strep Throat, DI for Fever (Symptom) -- Adult Additional Instructions: You came into the ER with a fever and a sore throat. We did a test which showed you have STREP throat. We noticed your EKG had some new changes. THIS MUST BE BROUGHT UP TO DR. ENRIQUE IN THE NEXT 24 TO 48 HOURS. Come back to the ER if your pain worsens or you have any other new or worsening concerns. Thank you for coming to the [facility] ER. We hope you feel better sooN! Print Language: TRINIDADIAN - Post Discharge Activity
[2019-01-28] MEDS ORDERED: SODIUM CHLORIDE IV ONE (17:45)
[2019-01-28] MEDS ORDERED: PENICILLIN G BENZATHINE 1,200,000 UNIT/2 ML PFS IM ONE ×2 (18:50→19:50)
[2019-01-28 18:51] LABS: BASO % 0.5 % (0-2.0); EOS % 1.2 % (0-4.5); HEMOGLOBIN 12.1 GM/dL (10.7-15.3); LYMPH % 15.4 % (8-40); MCH 30.9 pg (25.7-33.7); MCHC 32.7 g/dl (32.0-36.0); MEAN CELL VOLUME 94.5 fl (80-96); MEAN PLT VOLUME 8.8 fl (7.5-11.1); MONO % 7.4 % (3.8-10.2); NEUT % 75.5 % (42.8-82.8); PLATELET COUNT 230 K/MM3 (134-434); RBC 3.91 M/mm3 (3.60-5.2); RDW 14.2 % (11.6-15.6); WHITE BLOOD COUNT 24.1 K/mm3 (4.0-10.0)
--- NOTE | 2019-01-28 18:51 | PDOC ---
Attending Attestation - Resident Resident Name: Damian Lin - ED Attending Attestation I have performed the following: I have examined & evaluated the patient, The case was reviewed & discussed with the resident, I agree w/resident's findings & plan, Exceptions are as noted - HPI HPI: 01/28/19 18:50 88 year-old female presents with cold symptoms and complaint of sore throat - Physicial Exam PE: 01/28/19 18:54 alert and ambulatory 88 yo female p/w URI symptoms head ncat neck supple oropharynx macroglossia /difficult to see tonsillar pillars,no exudates appreciated lungs cta b/l abd nontender ext moving all extremities skin no petechia neuro axox3,ambulatory - Medical Decision Making 01/28/19 18:51 strep A POSITIVE and pt will be given intramuscular Bicillin injection 01/28/19 18:54
[2019-01-28 19:19] LABS: INR 1.14 (0.83-1.09); PROTHROMBIN TIME (PATIENT) 13.5 SEC (9.7-13.0)
[2019-01-28 19:22] LABS: ACTIVATED PTT 30.4 SECONDS (25.2-36.5)
[2019-01-28 19:25] LABS: ALBUMIN 3.5 g/dl (3.4-5.0); ALK PHOS 110 U/L (45-117); ANION GAP 10 MMOL/L (8-16); BILIRUBIN,TOTAL 0.3 mg/dL (0.2-1); BLOOD UREA NITROGEN 19 mg/dL (7-18); CALCIUM 8.5 mg/dL (8.5-10.1); CHLORIDE 101 mmol/L (98-107); CO2 27 mmol/L (21-32); CREATININE 1.3 mg/dL (0.55-1.3); GLUCOSE,RANDOM 111 mg/dL (74-106); POTASSIUM 4.5 mmol/L (3.5-5.1); SGOT/AST 19 U/L (15-37); SGPT/ALT 21 U/L (13-61); SODIUM 138 mmol/L (136-145); TOT PROT 8.2 g/dl (6.4-8.2)
[2019-01-28 20:19] LABS: PLATELET ESTIMATE ADEQUATE
[2019-01-28 22:24] LABS: URINE APPEARANCE CLEAR; URINE BILIRUBIN NEGATIVE (NEGATIVE); URINE COLOR YELLOW; URINE GLUCOSE (UA) NEGATIVE (NEGATIVE); URINE KETONE NEGATIVE (NEGATIVE); URINE LEUK ESTERASE TRACE (NEGATIVE); URINE NITRITE NEGATIVE (NEGATIVE); URINE PROTEIN NEGATIVE (NEGATIVE); URINE UROBILINOGEN 0.2 mg/dL (0.2-1.0)
[2019-01-28 22:46] LABS: EPI CELLS 0.3 /HPF (0-5); URINE CASTS NONE SEEN /hpf (0-8); URINE RBC 0.4 /hpf (0-4); URINE WBC 1.6 /hpf (0-5)
[2019-01-28 23:28] VITALS: BP 118/70; PULSE 82; TEMP 99.1
--- NOTE | 2019-01-29 14:27 | EKG ---
Test Reason : Blood Pressure : / mmHG Vent. Rate : 090 BPM Atrial Rate : 090 BPM P-R Int : 116 ms QRS Dur : 086 ms QT Int : 320 ms P-R-T Axes : 056 020 211 degrees QTc Int : 391 ms NORMAL SINUS RHYTHM POSSIBLE LEFT ATRIAL ENLARGEMENT ABNORMAL ECG WHEN COMPARED WITH ECG OF 14-JUN-2018 11:18, ST NOW DEPRESSED IN LATERAL LEADS INVERTED T WAVES HAVE REPLACED NONSPECIFIC T WAVE ABNORMALITY IN LATERAL LEADS QT HAS SHORTENED Confirmed by MD Mario, Familia ([id number]) on 01/29/2019 2:26:47 PM Referred By: Confirmed By:Familia Martin MD
== END 2019-01-28 23:28 | disposition home or self-care (01) ==
LOC: JER 16:15
PROC: 3E02329 Introduction of Other Anti-infective into Muscle, Percutaneous Approach (ICD-10-PCS; principal; 2019-01-28)
PROC: 3E0337Z Introduction of Electrolytic and Water Balance Substance into Peripheral Vein, Percutaneous Approach (ICD-10-PCS; 2019-01-28)
DX: J02.0 Streptococcal pharyngitis (principal); B95.0 Streptococcus, group A, as the cause of diseases classified elsewhere; R74.8 Abnormal levels of other serum enzymes; R94.31 Abnormal electrocardiogram [ECG] [EKG]; I10 Essential (primary) hypertension; E11.9 Type 2 diabetes mellitus without complications; Z79.84 Long term (current) use of oral hypoglycemic drugs; E78.5 Hyperlipidemia, unspecified
CPT/HCPCS: 36415; 71046-TC-FY; 80053; 81003; 83605; 84484; 85025; 85610; 85730; 87040; 87086; 87804; 87880; 93005; 93010; 96360; 96361; 96372; 99283-25; J7030

== ENCOUNTER 2019-05-29 15:39 | Emergency (ER) | payer OTHER ==
--- NOTE | 2019-05-29 15:47 | PDOC ---
Rapid Medical Evaluation Time Seen by Provider: 05/29/19 15:44 Medical Evaluation: Allergies Allergy/AdvReac Type Severity Reaction Status Date / Time No Known Allergies Allergy Verified 01/28/19 17:02 05/29/19 15:44 I have performed a brief in-person evaluation of this patient. The patient presents with a chief complaint of: rash x3 days Pertinent physical exam findings: VSS. AF. vesicular rash to right shoulder and right antecubital I have ordered the following: nothing The patient will proceed to the ED for further evaluation. Discharge Disposition - Diagnosis Rash - Referrals - Patient Instructions - Post Discharge Activity
[2019-05-29 15:48] VITALS: BP 146/71; PULSE 97; TEMP 98.9; BMI 24.9
--- NOTE | 2019-05-29 16:35 | PDOC ---
History of Present Illness - General Chief Complaint: Rash Stated Complaint: RASH Time Seen by Provider: 05/29/19 15:44 History Source: Patient - History of Present Illness Initial Comments: 05/29/19 17:00 Chief complaint: Rash Patient is an 88-year-old female with history of diabetes, hypertension and elevated cholesterol whose family states started getting rash to her right arm and shoulder 2 days ago. Patient denies any fever, pain, itching. GENERAL/CONSTITUTIONAL: No fever, weakness. dizziness HEAD, EYES, EARS, NOSE AND THROAT: No change in vision. No ear pain or discharge. No sore throat. CARDIOVASCULAR: No chest pain RESPIRATORY: No shortness of breath or cough GASTROINTESTINAL: No pain, nausea, vomiting, diarrhea or constipation GENITOURINARY: No dysuria MUSCULOSKELETAL: No neck or back pain SKIN: +rash NEUROLOGIC: No headache, vertigo, loss of consciousness, or loss of sensation. GENERAL: The patient is awake, alert, and fully oriented, in no acute distress. HEAD: Normal with no signs of trauma. EYES: Pupils equal, round and reactive to light, sclera anicteric, conjunctiva clear. ENT: pharynx: no erythema, no exudate, uvula midline NECK: supple CHEST: clear, nontender, rr ABD: soft, nontender BACK: no tenderness or signs of injury EXTREMITIES: Kill a rash clustered to posterior shoulder, a little bit to the upper arm, another larger cluster into the elbow and forearm, no signs of cellulitis, good range of motion, neurovascular intact. Rest of extremities, normal range of motion, no edema. NEUROLOGICAL: Normal speech, normal gait. SKIN: Warm, Dry Past History - Past Medical History Allergies/Adverse Reactions: Allergies Allergy/AdvReac Type Severity Reaction Status Date / Time No Known Allergies Allergy Verified 05/29/19 15:48 Home Medications: Ambulatory Orders Acetaminophen [Tylenol 8 Hour] 650 mg PO DAILY 06/14/18 Aspirin 81 mg PO DAILY 06/14/18 Cetirizine HCl [Zyrtec -] 10 mg PO DAILY 06/14/18 Metoprolol Succinate [Toprol Xl] 50 mg PO DAILY 06/14/18 Pioglitazone HCl [Actos] 30 mg PO DAILY 06/14/18 Ezetimibe [Zetia -] 10 mg PO DAILY 30 Days #30 tablet 06/15/18 Glipizide [Glipizide ER] 20 mg PO DAILY 30 Days #60 tab.er.24 06/15/18 Metformin HCl [Glucophage] 1,000 mg PO BID 30 Days #60 tablet 06/15/18 Nifedipine ER [Procardia XL -] 30 mg PO DAILY 30 Days #30 tab.er.24 06/15/18 Valacyclovir HCl [Valtrex] 1,000 mg PO TID #30 tablet 05/29/19 COPD: No Diabetes: Yes HTN: Yes Hypercholesterolemia: Yes - Suicide/Smoking/Psychosocial Hx Smoking History: Current every day smoker Have you smoked in the past 12 months: No Number of Cigarettes Smoked Daily: 2 Information on smoking cessation initiated: No Hx Alcohol Use: No Drug/Substance Use Hx: No Substance Use Type: None Hx Substance Use Treatment: No *Physical Exam - Vital Signs Last Vital Signs Temp Pulse Resp BP Pulse Ox 98.9 F 97 H 16 146/71 96 05/29/19 15:45 05/29/19 15:45 05/29/19 15:45 05/29/19 15:45 05/29/19 15:45 Medical Decision Making - Medical Decision Making 05/29/19 17:05 Well-appearing 88-year-old female with history of diabetes, hyperlipidemia and hypertension with 2 days of herpetic rash to right shoulder and arm. No pain, no signs of cellulitis, nonpruritic. Patient will be started on Valtrex 1 g 3 times a day for 10 days given her age and diabetes. She will follow-up with her doctor tomorrow. She has an in the house and was advised to stay away from the infant and for the mother of the infant to speak to the resource coordinator tomorrow. Discussed issues, findings, results, applicable medications and treatments and follow-up. All these were understood and all questions were answered *DC/Admit/Observation/Transfer Diagnosis at time of Disposition: Rash - Discharge Dispostion Disposition: HOME Condition at time of disposition: Stable Decision to Admit order: No - Prescriptions Prescriptions: Valacyclovir HCl [Valtrex] 1,000 mg PO TID #30 tablet - Referrals Referrals: Dustin Mccarthy MD [Primary Care Provider] - - Patient Instructions Printed Discharge Instructions: DI for Shingles Additional Instructions: Take the Valtrex 1 tablet 3 times a day for 10 days Do not go near the baby. Have the mother talked to the resource coordinator tomorrow Follow-up with your doctor tomorrow Return to the ER if fever, getting sicker or any other concerns [place] la tableta Valtrex 1 3 veces al da maribell 10 ling. No te acerques al beb. Que la madre hable con el pediatra maana. Josee un seguimiento con leal mdico maana. Regrese a la jennifer de emergencias si tiene fiebre, se enferma o cualquier otra inquietud. Print Language: CAMBODIAN - Post Discharge Activity
== END 2019-05-29 16:52 | disposition home or self-care (01) ==
LOC: JERFT 15:39
DX: B02.9 Zoster without complications (principal); I10 Essential (primary) hypertension; E78.00 Pure hypercholesterolemia, unspecified; E11.9 Type 2 diabetes mellitus without complications; Z79.84 Long term (current) use of oral hypoglycemic drugs
CPT/HCPCS: 99281-25